=== PATIENT | female | born 1970 | race Caucasian/White ===

== ENCOUNTER 2020-11-04 13:04 | Day surgery (SDC) | payer OTHER ==
[~2020-11-04 13:04] MED LIST: SYNTHROID100 MCG PO
== END 2020-11-04 21:00 | disposition home or self-care (01) ==
LOC: CIR.AMB 13:04 → U 13:04 → CIR.AMB 21:00
PROVIDERS: ATTEND Obstetrics & Gynecology Obstetrics
DX: N93.8 Other specified abnormal uterine and vaginal bleeding (principal); Z20.822 Contact with and (suspected) exposure to COVID-19